=== PATIENT | female | born 1980 | race Caucasian/White ===

== ENCOUNTER 2019-08-25 07:32 | Emergency (ER) | payer BC, OTHER ==
--- NOTE | 2019-08-25 08:20 | EDM.PDOC ---
ED HPI GENERAL MEDICAL PROBLEM - General Chief Complaint: ENT Problem Time Seen by Provider: 08/25/19 08:12 Source of Information: Reports: Patient History Limitations: Reports: No Limitations - History of Present Illness INITIAL COMMENTS - FREE TEXT/NARRATIVE: pt arrived with very blurry vision nd on the way in to the ER she started seeing double. She has a low grade headache. She has had some sinus congestion. Onset: Other ( the blurred vision started yesterday and is worse today. She noted the double vision on the way to the ER. ) Duration: Hour(s): Location: Reports: Face, Other (pt has not been ill and does not feel ill at this time. 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 ) Respiratory: Reports: No Symptoms Cardiovascular: Reports: No Symptoms Endocrine: Reports: No Symptoms GI/Abdominal: Reports: No Symptoms : Reports: No Symptoms Musculoskeletal: Reports: No Symptoms Skin: Reports: No Symptoms Neurological: Reports: Headache, Other (low grade headache.) Psychiatric: Reports: No Symptoms ED EXAM, ENT - Physical Exam Exam: See Below Text/Narrative:: pt arrived with blurred vision and now she is seeing double. She feels that this is extreme enough that she does not feel safe to drive. s Exam Limited By: No Limitations General Appearance: Alert, Anxious, Moderate Distress, Other (pupils equal and reactive. ) Ears: Normal TMs Nose: Normal Inspection Mouth/Throat: Normal Inspection Head: Atraumatic Neck: Normal Inspection Respiratory/Chest: No Respiratory Distress Cardiovascular: Normal Peripheral Pulses GI/Abdominal: Soft, Non-Tender (Female) Exam: Deferred Rectal (Female) Exam: Deferred Back: Normal Inspection Extremities: Normal Inspection Neurological: Alert, Oriented, Normal Cognition Psychiatric: Normal Affect Course - Vital Signs Last Recorded V/S: Last Vital Signs Temp 37.3 C 08/25/19 08:09 Pulse 58 L 08/25/19 08:09 Resp 17 08/25/19 08:09 BP 139/75 08/25/19 08:09 Pulse Ox 99 08/25/19 08:09 - Orders/Labs/Meds Orders: Active Orders 24 hr Category Date Time Status UA W/MICROSCOPIC [URIN] Urgent Lab 08/25/19 08:10 Ordered Labs: Laboratory Tests 08/25/19 08/25/19 08/25/19 Range/Units 08:20 08:20 08:20 WBC 4.8 (4.5-11.0) K/uL RBC 4.80 (3.30-5.50) M/uL Hgb 13.8 (12.0-15.0) g/dL Hct 41.4 (36.0-48.0) % MCV 86 (80-98) fL MCH 29 (27-31) pg MCHC 33 (32-36) % Plt Count 237 (150-400) K/uL Neut % (Auto) 55 (36-66) % Lymph % (Auto) 35 (24-44) % Tate % (Auto) 8 H (2-6) % Eos % (Auto) 2 (2-4) % Baso % (Auto) 1 (0-1) % Sodium 142 (140-148) mmol/L Potassium 4.2 (3.6-5.2) mmol/L Chloride 106 (100-108) mmol/L Carbon Dioxide 29 (21-32) mmol/L Anion Gap 7.2 (5.0-14.0) mmol/L BUN 11 (7-18) mg/dL Creatinine 0.7 (0.6-1.0) mg/dL Est Cr Clr Drug Dosing 89.26 mL/min Estimated GFR (MDRD) > 60 (>60) Glucose 87 (74-106) mg/dL Calcium 9.1 (8.5-10.1) mg/dL Total Bilirubin 0.5 (0.2-1.0) mg/dL AST 20 (15-37) U/L ALT 21 (12-78) U/L Alkaline Phosphatase 61 (46-116) U/L Total Protein 7.3 (6.4-8.2) g/dL Albumin 3.9 (3.4-5.0) g/dL Globulin 3.4 (2.3-3.5) g/dL Albumin/Globulin Ratio 1.1 L (1.2-2.2) TSH, Ultra Sensitive 0.703 (0.358-3.740) uIU/mL - Re-Assessments/Exams Free Text/Narrative Re-Assessment/Exam: 08/25/19 09:57 pt had normal electrolyes and bs. She had a nornmal thyroid. Pt had a cat scan of the head that was normal. Departure - Departure Time of Disposition: 09:48 Disposition: Home, Self-Care 01 Condition: Fair Clinical Impression: Blurred vision - Discharge Information Referrals: PCP,None [Primary Care Provider] - Forms: ED Department Discharge Care Plan Goals: to the [facility]-- Dr zeng will see Pt. - My Orders Last 24 Hours: My Active Orders 08/25/19 08:10 UA W/MICROSCOPIC [URIN] Urgent - Assessment/Plan Last 24 Hours: My Active Orders 08/25/19 08:10 UA W/MICROSCOPIC [URIN] Urgent
--- NOTE | 2019-08-25 09:23 | CRLCT ---
INDICATION: Double vision. Blurred vision. TECHNIQUE: CT head without IV contrast. FINDINGS: No intracranial hemorrhage edema, or mass effect. No significant intracranial abnormalities. Minimal cerebral atrophy. Remainder negative. IMPRESSION: No acute intracranial disease. Please note that all CT scans at this facility use dose modulation, iterative reconstruction, and/or weight-based dosing when appropriate to reduce radiation dose to as low as reasonably achievable. Dictated by Jimbo Tellez MD @ Aug 25 2019 9:18AM Signed by Dr. Jimbo Tellez @ Aug 25 2019 9:20AM
== END 2019-08-25 09:54 | disposition home or self-care (01) ==
LOC: JP.ED 07:32
DX: H53.8 Other visual disturbances (principal); E03.9 Hypothyroidism, unspecified; Z79.899 Other long term (current) drug therapy
CPT/HCPCS: 36415; 70450; 80053; 84443; 85025; 99285-25

== ENCOUNTER 2020-04-16 11:47 | Emergency (ER) | payer BC, OTHER ==
[2020-04-16] MEDS ORDERED: diphenhydrAMINE 50 MG/ML SDV IVPUSH ONE (13:49)
[2020-04-16] MEDS ORDERED: Lactated Ringers 1,000 ML IV ONE (13:49)
[2020-04-16] MEDS ORDERED: Ketorolac 30 MG/ML SDV IVPUSH ONE (13:49)
[2020-04-16] MEDS ORDERED: Sodium Chloride 0.9% 10 ML Syringe FLUSH PRN (13:49)
[2020-04-16] MEDS ORDERED: Prochlorperazine 10 MG/2 ML SDV IVPUSH ONE (13:49)
--- NOTE | 2020-04-16 13:52 | EDM.PDOC ---
ED HPI GENERAL MEDICAL PROBLEM - General Chief Complaint: Headache Stated Complaint: HEADACHE, BLURRY VISION, VERTIGO, NAUSEA Time Seen by Provider: 04/16/20 13:26 Source of Information: Reports: Patient, Family, Old Records, RN Notes Reviewed History Limitations: Reports: No Limitations - History of Present Illness INITIAL COMMENTS - FREE TEXT/NARRATIVE: 40-year-old female presents emergency department a complaint of headache, blurry vision, eye pain and dizziness. She has had these symptoms for last 1 was about a month ago last 3 days she did not seek treatment at this time. However reviewing records in 2019 she had a similar event presented with blurry vision and headache underwent lab work CT scan which was unrevealing for any etiology was also evaluated by her eye care provider with no etiology. She states she has no history of migraine type headaches and has no family history of migraine type headaches. 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 Endocrine/Metabolic History: Reports: Hypothyroidism Other Endocrine/Metabolic History: Graves disease - Past Surgical History HEENT Surgical History: Reports: Naso-Sinus Surgery Social & Family History - Tobacco Use Smoking Status *Q: Never Smoker - Caffeine Use Caffeine Use: Reports: Coffee ED ROS GENERAL - Review of Systems Review Of Systems: See Below Constitutional: Denies: Fever, Chills HEENT: Reports: Vertigo, Vision Change Respiratory: Reports: No Symptoms Cardiovascular: Reports: No Symptoms GI/Abdominal: Reports: Nausea, Vomiting : Reports: No Symptoms Neurological: Reports: Headache - Physical Exam Exam: See Below Exam Limited By: No Limitations General Appearance: Alert, Mild Distress Eye Exam: Bilateral Eye: EOMI, Normal Fundi, Normal Inspection, PERRL, Vision Changes Respiratory/Chest: No Respiratory Distress Course - Vital Signs Last Recorded V/S: Last Vital Signs Temp 97.2 F 04/16/20 13:39 Pulse 93 04/16/20 13:39 Resp 18 04/16/20 13:39 BP 114/76 04/16/20 13:39 Pulse Ox 100 04/16/20 13:39 - Orders/Labs/Meds Orders: Active Orders 24 hr Category Date Time Status Peripheral IV Care [RC] . DIRECTED Care 04/16/20 13:50 Active Sodium Chloride 0.9% [Saline Flush] Med 04/16/20 13:49 Active 10 ml FLUSH ASDIRECTED PRN Peripheral IV Insertion Adult [OM.PC] Urgent Oth 04/16/20 13:49 Ordered Medication Orders Sodium Chloride (Saline Flush) 10 ml FLUSH ASDIRECTED PRN PRN Reason: Keep Vein Open Last Admin: 04/16/20 14:25 Dose: 10 ml Documented by: RENETTA Meds: Medications Generic Name Dose Route Start Last Admin Trade Name Freq PRN Reason Stop Dose Admin Sodium Chloride 10 ml 04/16/20 13:49 04/16/20 14:25 Saline Flush FLUSH 10 ml ASDIRECTED PRN Administration Keep Vein Open Discontinued Medications Generic Name Dose Route Start Last Admin Trade Name Freq PRN Reason Stop Dose Admin Dexamethasone 4 mg 04/16/20 14:47 04/16/20 14:55 Dexamethasone IVPUSH 04/16/20 14:48 4 mg ONETIME ONE Administration Diphenhydramine HCl 50 mg 04/16/20 13:49 04/16/20 14:27 Benadryl IVPUSH 04/16/20 13:50 50 mg ONETIME ONE Administration Haloperidol Lactate 5 mg 04/16/20 14:47 04/16/20 14:56 Haldol IVPUSH 04/16/20 14:48 5 mg ONETIME ONE Administration Lactated Ringer's 1,000 mls @ 999 mls/hr 04/16/20 13:49 04/16/20 14:28 Ringers, Lactated IV 04/16/20 14:49 999 mls/hr BOLUS ONE Administration Ketorolac Tromethamine 30 mg 04/16/20 13:49 04/16/20 14:23 Toradol IVPUSH 04/16/20 13:50 30 mg ONETIME ONE Administration Prochlorperazine Edisylate 5 mg 04/16/20 13:49 04/16/20 14:25 Compazine IVPUSH 04/16/20 13:50 5 mg ONETIME ONE Administration Departure - Departure Time of Disposition: 16:18 Disposition: Home, Self-Care 01 Condition: Fair Clinical Impression: Migraine - Discharge Information Instructions: Migraine Headache, [id number] Referrals: PCP,None [Primary Care Provider] - Forms: ED Department Discharge Additional Instructions: Continue to use ibuprofen as needed for pain control, recommend follow-up with your primary care in the next 3 to 5 days for reevaluation Sepsis Event Note (ED) - Evaluation Sepsis Screening Result: No Definite Risk - Focused Exam Vital Signs: Vital Signs Temp Pulse Resp BP Pulse Ox 04/16/20 13:39 97.2 F 93 18 114/76 100 04/16/20 13:28 97.2 F 93 18 114/76 100 - My Orders Last 24 Hours: My Active Orders 04/16/20 13:49 Sodium Chloride 0.9% [Saline Flush] 10 ml FLUSH ASDIRECTED PRN Peripheral IV Insertion Adult [OM.PC] Urgent 04/16/20 13:50 Peripheral IV Care [RC] . DIRECTED - Assessment/Plan Last 24 Hours: My Active Orders 04/16/20 13:49 Sodium Chloride 0.9% [Saline Flush] 10 ml FLUSH ASDIRECTED PRN Peripheral IV Insertion Adult [OM.PC] Urgent 04/16/20 13:50 Peripheral IV Care [RC] . DIRECTED Plan: Assessment Acuity = acute Site and laterality = migraine Etiology = unknown Manifestations = none Location of injury = Home Lab values = none Plan Good improvement combination Toradol, Compazine, 1 L fluids, Haldol, Benadryl and dexamethasone plan is discharged home follow-up primary care 3 to 5 days for further evaluation This note was dictated using [employer] voice recognition software please call with any questions on syntax or grammar.
[2020-04-16] MEDS ORDERED: Dexamethasone 4 MG/ML SDV IVPUSH ONE (14:47)
[2020-04-16] MEDS ORDERED: Haloperidol Lactate 5 MG/ML SDV IVPUSH ONE (14:47)
== END 2020-04-16 16:38 | disposition home or self-care (01) ==
LOC: JP.ED 11:47
DX: G43.909 Migraine, unspecified, not intractable, without status migrainosus (principal); E03.9 Hypothyroidism, unspecified; E05.00 Thyrotoxicosis with diffuse goiter without thyrotoxic crisis or storm; Z79.899 Other long term (current) drug therapy
CPT/HCPCS: 96361; 96374; 96375; 99284; J0780; J1100; J1200; J1630; J1885; J7120